=== PATIENT | female | born 1945 | race Hispanic/Latino ===

== ENCOUNTER 2018-11-01 20:29 | Emergency (ER) | payer MEDICARE, OTHER ==
[~2018-11-01] VITALS: Ht 157.5 cm; Wt 66.2 kg
[~2018-11-01 20:29] MED LIST: MOBIC7.5 M1; Z.0.TOPROL XL50 MG
--- OUTSIDE RECORDS SUMMARY | 2018-11-01 20:31 | XMS REPORT | Summary of Care ---
Author Author Alaina Yun M.A. Unknown Address [facility] Phone Unavailable Care Team Providers Care Marketing Programs Manager Name Role Phone LAYA Coleman, NIGEL Unavailable Unavailable LESLEE Coleman, SHENA Unavailable Unavailable ABBY Coleman, SHIVANI Unavailable Unavailable SHERLY Coleman, LAM Unavailable Unavailable SHERLY JOHNSON [place], LAM Unavailable Unavailable Andrei JOHNSON, Parish Unavailable Unavailable ABBY JOHNSON, SHIVANI Unavailable Unavailable Gerald JOHNSON, Bobby Unavailable Unavailable ALEENA JOHNSON [place], ESTUARDO Ha Unavailable Unavailable Unavailable Unavailable Functional Status Name Dates Details Functional status health issues are not documented Status: Name Dates Details Cognitive status health issues are not documented Status: Problems Name Dates Details JAE positive (795.79, R76.8) Status: Active Onychomycosis (110.1, B35.1) Status: Active Abnormal EKG (794.31, R94.31) Status: Active Paronychia of toe, left (681.11, L03.032) Status: Active Acute vaginitis (616.10, N76.0) Status: Active At low risk for fall (V49.89, Z91.81) Status: Active Nonspecific finding on examination of urine (791.9, R82.90) Status: Active Primary osteoarthritis, unspecified hand (715.14, M19.049) Status: Active On statin therapy (V58.69, Z79.899) Status: Active Other polyp of colon (211.3, K63.5) Status: Active Colon cancer screening (V76.51, Z12.11) Status: Active Dizziness (780.4, R42) Status: Active Flu vaccine need (V04.81, Z23) Status: Active Allergic conjunctivitis of both eyes (372.14, H10.13) Status: Active Acute non-seasonal allergic rhinitis, unspecified trigger Status: Active Chronic diarrhea (787.91, K52.9) Status: Active BMI (body mass index) 20.0-29.9 Status: Active Encounter for diabetic foot exam (250.00, E11.9) Status: Active Hoarseness (784.42, R49.0) Status: Active Coronary artery disease (414.00, I25.10) Status: Active Advanced directives, counseling/discussion (V65.49, Z71.89) Status: Active Depression screening (V79.0, Z13.31) Status: Active Risk for falls (V15.88, Z91.81) Status: Active Encounter for mini-mental status examination Status: Active Screening mammogram, encounter for (V76.12, Z12.31) Status: Active Post-menopausal (V49.81, Z78.0) Status: Active Osteoporosis screening (V82.81, Z13.820) Status: Active Diabetes mellitus (250.00, E11.9) Status: Active Acid reflux disease (530.81, K21.9) Status: Active Hyperlipidemia (272.4, E78.5) Status: Active Need for shingles vaccine (V04.89, Z23) Status: Active Need for Tdap vaccination (V06.1, Z23) Status: Active Essential (primary) hypertension (401.9, I10) Status: Active Need for influenza vaccination (V04.81, Z23) Status: Active Urinary frequency (788.41, R35.0) Status: Active Acute UTI (599.0, N39.0) Status: Active Medications Name Dates Details Metoprolol Succinate ER 50 MG Oral Tablet Extended Release 24 Hour TAKE ONE TABLET BY MOUTH DAILY Quantity: 90 ABBY Coleman, SHIVANI * Start : 12-Aug-2018 Active Simvastatin 20 MG Oral Tablet TAKE ONE TABLET BY MOUTH EVERY NIGHT AT BEDTIME * Quantity: 90 Refills: 1 SATTAR M.D., LAM * Start : 15-Jul-2015 Active Iron TABS TAKE 1 TABLET DAILY * Refills: 0 R.N. Active MetFORMIN HCl ER 500 MG Oral Tablet Extended Release 24 Hour TAKE ONE TABLET BY MOUTH DAILY DIRECTED * Quantity: 90 Refills: 1 SATTAR M.D., LAM * Start : 25-Jan-2015 Active Losartan Potassium 25 MG Oral Tablet TAKE ONE TABLET BY MOUTH DAILY * Quantity: 90 Refills: 1 SATTAR M.D., LAM * Start : 25-Jan-2015 Active Calcium 500 MG TABS TAKE 2 TABLET TWICE DAILY * Refills: 0 R.N. * Start : 29-Jan-2015 Active Voltaren 1 % Transdermal Gel APPLY TO UPPER EXTREMITIES, 2 GM OF GEL TO AFFECTED AREA 4 TIMES DAILY. DO NOT APPLY MORE THAN 8 GM DAILY TO ANY ONE AFFECTED JOINT. * Quantity: 1 Refills: 0 ECO MKyaw, NIGEL * Start : 28-Aug-2015 Active 100 GM Tube (3 Tubes) Aspirin 81 MG TABS TAKE 1 TABLET DAILY. * Refills: 0 R.N. Active Physical Therapy indic: bilateral hand pain from hand OA. Needs hand PT. 2x/wk for 12 wks * Quantity: 1 Refills: 0 SHENA CAMILO M.D. * Start : 27-Jan-2016 Active GeckoLife Contour Next Test STRP Check glucose fasting and post meal twice daily. vary test times * Quantity: 1 Refills: 2 SATTAR M.Efren., LAM * Start : 08-Sep-2016 Active 50 Strip Box Mk Microlet Lancets USE DIRECTED for blood sugar monitoring. * Quantity: 1 Refills: 1 SATTAR [place], LAM * Start : 08-Sep-2016 Active 100 Unit Package Omeprazole 20 MG Oral Capsule Delayed Release TAKE 1 CAPSULE DAILY EVERY MORNING BEFORE BREAKFAST. * Quantity: 90 Refills: 1 SATTAR M.D., LAM * Start : 17-Sep-2017 Active Shingrix 50 MCG Intramuscular Suspension Reconstituted IM: 0.5 mL 2-dose series at 0 and 2 to 6 months * Quantity: 1 Refills: 1 SATTAR M.Efren., LAM * Start : 17-Aug-2018 Active Tdap (Boostrix) IM X 1 * Quantity: 1 Refills: 0 SATTAR M.D., LAM * Start : 17-Aug-2018 Active Nitrofurantoin Monohyd Macro 100 MG Oral Capsule TAKE 1 CAPSULE TWICE DAILY. * Quantity: 14 Refills: 0 SATTAR M.D., LAM * Start : 25-Aug-2018 Active Nitrofurantoin Monohyd Macro 100 MG Oral Capsule TAKE 1 CAPSULE EVERY 12 HOURS DAILY. * Quantity: 14 Refills: 0 SATTAR M.D., LAM * Start : 25-Aug-2018 Active Allergies and Adverse Reactions Name Dates Details No Known Drug Allergies (Allergy) Status: Active Past Medical History Name Dates Details History of Acute maxillary sinusitis (461.0, J01.00) Status: Resolved History of allergic rhinitis (V12.69, Z87.09) Status: Resolved History of Arm pain (729.5, M79.603) Status: Resolved History of bronchitis (V12.69, Z87.09) Status: Resolved History of Cervicothoracic Radiculopathy (729.2) Status: Resolved History of Conjunctival hemorrhage of left eye (372.72, H11.32) Status: Resolved History of Elevated blood pressure reading without diagnosis of hypertension (796.2, R03.0) Status: Resolved History of History of cardiac catheterization (V45.89, Z98.890) Status: Resolved History of Impaired fasting glucose (790.21, R73.01) Status: Resolved History of insomnia (V13.89, Z87.898) Status: Resolved History of irritable bowel syndrome (V12.79, Z87.19) Status: Resolved History of Migraine without status migrainosus, not intractable (346.90, G43.909) Status: Resolved History of Screening for malignant neoplasm of breast (V76.10, Z12.31) Status: Resolved Procedures Procedure Dates Details [QH] LIPID PANEL WITH REFLEX TO DIRECT LDL Date: 11-Aug-2018 [[facility]] HEPATIC FUNCTION PANEL Date: 11-Aug-2018 [[facility]] HEMOGLOBIN A1c Date: 17-Aug-2018 History of Hysterectomy Completed History of Knee Replacement Completed Immunization Name Dates Details Influenza on: 01-Sep-2014 Prevnar 13 Intramuscular Suspension Lot #: [id number] on: 11-Jan-2015 Fluzone Preservative Free 0.5 ML RANDY Lot #: [id number] on: 28-Aug-2015 Fluzone High-Dose 0.5 ML Intramuscular Suspension Prefilled Syringe Lot #: [id number] on: 16-Jul-2016 Pneumovax 23 25 MCG/0.5ML Injection Injectable Lot #: [id number] on: 02-Sep-2016 Fluzone High-Dose 0.5 ML Intramuscular Suspension Prefilled Syringe Lot #: [id number] on: 05-Aug-2017 Fluzone High-Dose 0.5 ML Intramuscular Suspension Prefilled Syringe Lot #: [id number] on: 17-Aug-2018 Family History Name Dates Details Family history of hypertension (V17.49, Z82.49) Status: Active Name Dates Details Family history of hypertension (V17.49, Z82.49) Status: Active Name Dates Details Family history of pancreatic cancer (V16.0, Z80.0) Status: Active Name Dates Details Family history of hypertension (V17.49, Z82.49) Status: Active Name Dates Details Family history of lung cancer (V16.1, Z80.1) Status: Active Family history of pancreatic cancer (V16.0, Z80.0) Status: Active Social History Name Dates Details - Status: Name Dates Details Never smoker Vital Signs Date Test Result Details No Known Vitals to report Results Date Description Value Details Results not documented Plan of Care Name Dates Details Planned Observations Planned Goals not documented Planned Encounters Appointment; LAM DUBOIS M.D. On: 13-Feb-2019 9:00 Appointment; SHIVANI MORA M.D. On: 10-Aug-2019 9:20 Interventions Provided Follow-ups/Referrals* Ophthalmology Referral; To Be Done: 03 Oct 2018 Instructions Name Dates Details Instructions not documented Encounters Appointment; BRIGHT THURMAN P.A. Encounter Diagnosis: Problem not documented On: 20-Nov-2016 8:30 Appointment; LAM DUBOIS M.D. Encounter Diagnosis: Problem not documented On: 29-Dec-2016 10:00 Appointment; SHIVANI MORA M.D. Encounter Diagnosis: Problem not documented On: 14-Jan-2017 11:15 Appointment; LAM DUBOIS M.D. Encounter Diagnosis: Problem not documented On: 27-Jan-2017 10:30 Appointment; SHIVANI MORA M.D. Encounter Diagnosis: Problem not documented On: 01-Feb-2017 13:30 Appointment; BOBBY SIGALA M.D. Encounter Diagnosis: Problem not documented On: 09-Feb-2017 13:00 Appointment; LAM DUBOIS M.D. Encounter Diagnosis: Problem not documented On: 28-May-2017 9:30 Appointment; SHIVANI MORA M.D. Encounter Diagnosis: Problem not documented On: 03-Aug-2017 13:00 Appointment; LAM DUBOIS M.D. Encounter Diagnosis: Problem not documented On: 05-Aug-2017 8:30 Appointment; LAM DUBOIS M.D. Encounter Diagnosis: Problem not documented On: 17-Sep-2017 14:00 Appointment; ESTUARDO FLOOD M.D. Encounter Diagnosis: Problem not documented On: 14-Oct-2017 14:30 Appointment; ESTUARDO FLOOD M.D. Encounter Diagnosis: Problem not documented On: 21-Oct-2017 13:00 Appointment; LAM DUBOIS M.D. Encounter Diagnosis: Problem not documented On: 08-Nov-2017 8:15 Appointment; ESTUARDO FLOOD M.D. Encounter Diagnosis: Problem not documented On: 25-Nov-2017 10:00 Appointment; LAM DUBOIS M.D. Encounter Diagnosis: Problem not documented On: 27-Jan-2018 9:00 Appointment; LAM DUBOIS M.D. Encounter Diagnosis: Problem not documented On: 09-Feb-2018 10:00 Appointment; LAM DUBOIS M.D. Encounter Diagnosis: Problem not documented On: 28-Feb-2018 9:00 Appointment; SHIVANI MORA M.D. Encounter Diagnosis: Problem not documented On: 28-Jul-2018 9:00 Appointment; SHIVANI MORA M.D. Encounter Diagnosis: Problem not documented On: 01-Aug-2018 14:00 Appointment; SHIVANI MORA M.D. Encounter Diagnosis: Problem not documented On: 11-Aug-2018 14:40 Appointment; LAM DUBOIS M.D. Encounter Diagnosis: Problem not documented On: 16-Aug-2018 9:15 Appointment; LAM DUBOIS M.D. Encounter Diagnosis: Problem not documented On: 17-Aug-2018 11:30
[2018-11-01] MEDS ORDERED: ONDANSETRON HCL 4 MG ORAL DISINTEGRATING TAB PO ONE (21:15)
[2018-11-01] MEDS ORDERED: ACETAMINOPHEN/CODEINE 300MG - 30MG TAB PO ONE (21:15)
--- NOTE | 2018-11-01 22:05 | Diagnostic Imaging Report ---
History: Fall, hit the head Comparison studies:None Technique: Axial images were obtained from the brain, face and cervical spine. Coronal and sagittal reconstructions obtained from the axial data. Intravenous contrast: None Dose modulation, iterative reconstruction, and/or weight based adjustment of the mA/kV was utilized to reduce the radiation dose to as low as reasonably achievable. Findings: Head CT: Scalp/skull: Left parietoccipital scalp hematoma and laceration. No fractures, blastic or lytic lesions. Extra-axial spaces: No masses. No fluid collections. Brain sulci: Appropriate for age. Ventricles: Normal in size and configuration. No hydrocephalus. Parenchyma: No abnormal densities. No masses, hemorrhage, acute or chronic cortical vascular insults. Sellar/suprasellar region: No abnormalities Craniocervical junction: Patent foramen magnum. No Chiari one malformation. Maxillofacial CT: Soft tissues: No abnormalities.. Bones: No fractures or bony abnormalities. . Orbits: No abnormalities. Paranasal sinuses: Clear. Cervical spine CT: Fractures: None. Soft tissues: No gross abnormalities. Atlantoaxial articulation: Degenerative changes without acute abnormality Alignment: Straightening of the normal lordosis. No scoliosis. Cervicomedullary junction: No abnormalities. The foramen magnum is patent. Vertebrae: No infection or neoplasm. Degenerative changes: Patent canal and foramina. Incidental findings: None. Impression: Head CT: 1. No acute intracranial abnormality. 2. Left parietoccipital scalp without fracture. Facial CT: 1. No acute facial abnormality. Cervical spine CT: 1. No acute cervical abnormalities. 2. Cannot exclude ligament, spinal cord and or vascular abnormalities on the basis of this examination. Signed by: DR Eyad Ramirez M.D. on 11/01/2018 10:02 PM
[2018-11-01] MEDS ORDERED: KETOROLAC TROMETHAMINE 60 MG/2 ML VIAL IM ONE (23:00)
[2018-11-01 23:50] VITALS: BP 151/76
== END 2018-11-01 23:59 | disposition home or self-care (01) ==
LOC: ER 20:29
DX: S00.83XA Contusion of other part of head, initial encounter (principal); S16.1XXA Strain of muscle, fascia and tendon at neck level, initial encounter; W01.0XXA Fall on same level from slipping, tripping and stumbling without subsequent striking against object, initial encounter; Y92.008 Other place in unspecified non-institutional (private) residence as the place of occurrence of the external cause
CPT/HCPCS: 70450; 70486; 72125; 99283; J1885